=== PATIENT | female | born 1960 | race Caucasian/White ===

== ENCOUNTER 2018-07-13 11:05 | Day surgery (SDC) | payer MEDICAID ==
[~2018-07-13] VITALS: Ht 160 cm; Wt 68.0 kg
[2018-07-13] MEDS ORDERED: LIDOCAINE 2% 100 MG/5 ML UJET TP ONE (13:40)
[2018-07-13] MEDS ORDERED: fentaNYL 0.05 MG/ML VIAL ONE (13:40)
== END 2018-07-13 14:50 | disposition home or self-care (01) ==
LOC: MMU 11:05 → MDS 11:05
PROVIDERS: ATTEND Internal Medicine Gastroenterology
DX: K57.30 Diverticulosis of large intestine without perforation or abscess without bleeding (principal); E03.9 Hypothyroidism, unspecified; E66.9 Obesity, unspecified; Z68.26 Body mass index [BMI] 26.0-26.9, adult; Z88.8 Allergy status to other drugs, medicaments and biological substances; Z88.2 Allergy status to sulfonamides; Z88.1 Allergy status to other antibiotic agents; Z98.890 Other specified postprocedural states; Z79.899 Other long term (current) drug therapy; Z80.0 Family history of malignant neoplasm of digestive organs
CPT/HCPCS: 45378; J3010